=== PATIENT | male | born 1975 | race American Indian/Alaskan Native ===

== ENCOUNTER 2018-09-02 10:17 | Emergency (ER) | payer MEDICAID, OTHER ==
[2018-09-02 10:17] VITALS: BMI 23.7
[2018-09-02 10:34] VITALS: BP 116/86; PULSE 60; RESP 16; TEMP 98; O2SAT 99
--- NOTE | 2018-09-02 10:37 | C.PDOC ---
History Of Present Illness 43 year old male, with history of herniated disc and chronic back pain, is brought to the ED by EMS for evaluation after he reportedly fell from a ladder "just a few minutes ago". Upon ED arrival, patient immediately asked the staff for food. Patient also reports he drank alcohol and used PCP "just a few minutes ago." Patient reports he cannot move his legs. As per EMS, patient was walking on scene prior to arrival. Patient denies nausea, vomiting. Time Seen by Provider: 09/02/18 10:23 Chief Complaint (Nursing): Back Pain History Per: Patient, EMS History/Exam Limitations: intoxication Onset/Duration Of Symptoms: Mins Current Symptoms Are (Timing): Still Present Additional History Per: Patient, EMS Past Medical History Reviewed: Historical Data, Nursing Documentation, Vital Signs Vital Signs: Last Vital Signs Temp 98 F 09/02/18 10:32 Pulse 60 09/02/18 10:32 Resp 16 09/02/18 10:32 BP 116/86 09/02/18 10:32 Pulse Ox 99 09/02/18 10:32 - Medical History PMH: No Chronic Diseases Denies: Chronic Kidney Disease Surgical History: No Surg Hx Family History: States: Unknown Family Hx - Social History Hx Alcohol Use: Yes Hx Substance Use: Yes - Immunization History Hx Tetanus Toxoid Vaccination: No Hx Influenza Vaccination: No Hx Pneumococcal Vaccination: No Review Of Systems Gastrointestinal: Negative for: Nausea, Vomiting Musculoskeletal: Positive for: Back Pain (chronic ) Neurological: Positive for: Other (reportedly fell off ladder and hit head) Psych: Positive for: Other (PCP and alcohol use ) Physical Exam - Physical Exam Appears: Non-toxic, No Acute Distress, Other (visibly intoxicated ) Skin: Normal Color, Warm, Dry Head: Other (dry blood noted on forehead) Eye(s): bilateral: Normal Inspection Oral Mucosa: Moist Neck: Supple Chest: Symmetrical, No Deformity, No Tenderness Cardiovascular: Rhythm Regular, No Murmur Respiratory: Normal Breath Sounds, No Rales, No Rhonchi, No Wheezing Extremity: Other (patient refusing to cooperate during extremity exam, stating he is unable to move his legs ) Neurological/Psych: Other (arousable to touch and verbal stimuli ) ED Course And Treatment O2 Sat by Pulse Oximetry: 99 (on RA) Pulse Ox Interpretation: Normal - CT Scan/US CT Head Other Rad Studies (CT/US): Read By Radiologist, Radiology Report Reviewed CT/US Interpretation: Date of service: 09/02/2018. PROCEDURE: CT HEAD WITHOUT CONTRAST. HISTORY: head trauma. COMPARISON: None available. TECHNIQUE: Axial computed tomography images were obtained through the head/brain without intravenous contrast. Radiation dose: Total exam DLP = 1149.62 mGy-cm. This CT exam was performed using one or more of the following dose reduction techniques: Automated exposure control, adjustment of the mA and/or kV according to patient size, and/or use of iterative reconstruction technique. FINDINGS: HEMORRHAGE: No intracranial hemorrhage. BRAIN: No mass effect or edema. The greco-white matter differentiation appears intact. Please note that MRI with diffusion imaging is more sensitive in the detection of acute ischemic event. VENTRICLES: No hydrocephalus. CALVARIUM: Unremarkable. PARANASAL SINUSES: Mucosal thickening of the ethmoid air cells. MASTOID AIR CELLS: Unremarkable a s visualized. No inflammatory changes. OTHER FINDINGS: None. IMPRESSION: No acute intracranial pathology identified. Mucosal thickening of the ethmoid air cells. Medical Decision Making Medical Decision Making: Impression: 43 year old male with reported fall from ladder [employer] Plan: * CT Head * reassess and disposition Progress: CT Head ordered and reviewed. Patient awake and alert throughout ED course. Constantly asking multiple staff for food, requesting two sandwiches and two juices. When a staff member said they would have to consult with the RN before getting him food, he states "don't ask the nurse, just give me my food". CT results discussed with patient. He is stable for discharge home. Patient able to ambulate. Disposition - Disposition Disposition: HOME/ ROUTINE Disposition Time: 12:40 Condition: STABLE Additional Instructions: EMILE TUTTLE, thank you for letting us take care of you today. Your provider was Luma Huang MD and you were treated for BACK PAIN. The emergency me dical care you received today was directed at your acute symptoms. If you were prescribed any medication, please fill it and take as directed. It may take several days for your symptoms to resolve. Return to the Emergency Department if your symptoms worsen, do not improve, or if you have any other problems. Please contact your doctor or call one of the physicians/clinics you have been referred to that are listed on the Patient Visit Information form that is included in your discharge packet. Bring any paperwork you were given at discharge with you along with any medications you are taking to your follow up visit. Our treatment cannot replace ongoing medical care by a primary care provider outside of the emergency department. Thank you for allowing the [facility] team to be part of your care today. If you had an X-Ray or CT scan: A Radiologist will review the ED reading if any change in treatment is needed we will contact you. If you had a blood, urine, or wound culture: It will take several days for the results, if any change in treatment is needed we will contact you. If you had an STI test: It will take 48 hours for the results. Please call after 1 week if you have not heard back. Instructions: Closed Head Injury (DC) Forms: [employer] ([place]) - Clinical Impression Clinical Impression: Head injury - Scribe Statement The provider has reviewed the documentation as recorded by the Scribe (Carlotta Marshall) Provider Attestation: All medical record entries made by the Scribe were at my direction and personally dictated by me. I have reviewed the chart and agree that the record accurately reflects my personal performance of the history, physical exam, medical decision making, and the department course for this patient. I have also personally directed, reviewed, and agree with the discharge instructions and disposition.
--- NOTE | 2018-09-02 12:11 | CT ---
Date of service: 09/02/2018 PROCEDURE: CT HEAD WITHOUT CONTRAST. HISTORY: head trauma COMPARISON: None available. TECHNIQUE: Axial computed tomography images were obtained through the head/brain without intravenous contrast. Radiation dose: Total exam DLP = 1149.62 mGy-cm. This CT exam was performed using one or more of the following dose reduction techniques: Automated exposure control, adjustment of the mA and/or kV according to patient size, and/or use of iterative reconstruction technique. FINDINGS: HEMORRHAGE: No intracranial hemorrhage. BRAIN: No mass effect or edema. The greco-white matter differentiation appears intact. Please note that MRI with diffusion imaging is more sensitive in the detection of acute ischemic event. VENTRICLES: No hydrocephalus. CALVARIUM: Unremarkable. PARANASAL SINUSES: Mucosal thickening of the ethmoid air cells. MASTOID AIR CELLS: Unremarkable as visualized. No inflammatory changes. OTHER FINDINGS: None. IMPRESSION: No acute intracranial pathology identified. Mucosal thickening of the ethmoid air cells.
== END 2018-09-02 13:29 | disposition home or self-care (01) ==
LOC: C.ER 10:17
DX: S09.90XA Unspecified injury of head, initial encounter (principal); W11.XXXA Fall on and from ladder, initial encounter

== ENCOUNTER 2018-09-25 15:58 | Emergency (ER) | payer MEDICAID ==
[2018-09-25 15:58] VITALS: BMI 23.7
[2018-09-25 16:03] VITALS: BP 122/79; PULSE 91; RESP 14; TEMP 98.9; O2SAT 98
--- NOTE | 2018-09-25 16:31 | C.PDOC ---
History Of Present Illness 43 year old male is brought into the emergency department via EMS with intoxication. Patient denies using drugs or alcohol today. Patient admits to using PCP "a long time ago". Patient is requesting detox, and is well known among the detox program with history of heroin, cocaine, marijuana, PCP, and alcohol abuse. Time Seen by Provider: 09/25/18 16:03 Chief Complaint (Nursing): Pain, Chronic History Per: Patient History/Exam Limitations: no limitations Onset/Duration Of Symptoms: Hrs Current Symptoms Are (Timing): Still Present Past Medical History Reviewed: Historical Data, Nursing Documentation, Vital Signs Vital Signs: Last Vital Signs Temp 98.9 F 09/25/18 16:01 Pulse 91 H 09/25/18 16:01 Resp 14 09/25/18 16:01 BP 122/79 09/25/18 16:01 Pulse Ox 98 09/25/18 16:01 - Medical History PMH: No Chronic Diseases Denies: Chronic Kidney Disease Surgical History: No Surg Hx Family History: States: No Known Family Hx - Social History Hx Alcohol Use: Yes Hx Substance Use: Yes - Immunization History Hx Tetanus Toxoid Vaccination: No Hx Influenza Vaccination: No Hx Pneumococcal Vaccination: No Review Of Systems Except As Marked, All Systems Reviewed And Found Negative. Constitutional: Negative for: Fever, Chills Gastrointestinal: Negative for: Nausea, Vomiting, Abdominal Pain, Diarrhea Physical Exam - Physical Exam Appears: Non-toxic, No Acute Distress Skin: Normal Color, Warm, Dry Head: Atraumatic, Normacephalic Eye(s): bilateral: Normal Inspection, PERRL, EOMI Oral Mucosa: Moist Neck: Normal, Supple Chest: Symmetrical, No Tenderness Cardiovascular: Rhythm Regular, No Murmur Respiratory: Normal Breath Sounds, No Rales, No Rhonchi, No Wheezing Gastrointestinal/Abdominal: Soft, No Tenderness Extremity: Normal ROM Neurological/Psych: Oriented x3, Normal Speech, Normal Cognition ED Course And Treatment O2 Sat by Pulse Oximetry: 98 (RA) Pulse Ox Interpretation: Normal Medical Decision Making Medical Decision Making: Plan: Glucose POC Refused further evaluation and treatment, and left AMA. Disposition Counseled Patient/Family Regarding: Diagnosis - Disposition Disposition: AGAINST MEDICAL ADVICE Disposition Time: 17:00 Condition: STABLE Forms: [employer] ([place]) - Clinical Impression Clinical Impression: Drug abuse - Scribe Statement The provider has reviewed the documentation as recorded by the Scribe (Wiley Ledesma) Provider Attestation: All medical record entries made by the Scribe were at my direction and pers onally dictated by me. I have reviewed the chart and agree that the record accurately reflects my personal performance of the history, physical exam, medical decision making, and the department course for this patient. I have also personally directed, reviewed, and agree with the discharge instructions and disposition.
== END 2018-09-25 16:59 | disposition left against medical advice (07) ==
LOC: C.ER 15:58
DX: F19.10 Other psychoactive substance abuse, uncomplicated (principal)